=== PATIENT | male | born 1935 | race Caucasian/White ===

== ENCOUNTER → 2016-12-24 | Outpatient (CLI) | payer MEDICARE, OTHER ==
[~2016-12-24] VITALS: Ht 182.9 cm; Wt 108.9 kg
[~2016-12-24] MED LIST: ADENOSINE 90 MG/30 ML INJ IV ONE; ESOM40CA39 OR; FURO10SO OR; GABA-497 OR; GEMF600T3 OR; GLIM4TAB42 OR; HYDR10TA35 OR; METF-370 OR; METO-158 OR; POTASSIUM; RAMI10CA38 OR; SITA100T7 OR; [UNRECOGNIZED DRUG - CODE] SC
== END | disposition home or self-care (01) ==
LOC: Rad HDHVI 08:40
PROVIDERS: ATTEND Internal Medicine Cardiovascular Disease
DX: I10 Essential (primary) hypertension (principal); E11.9 Type 2 diabetes mellitus without complications; E78.00 Pure hypercholesterolemia, unspecified
CPT/HCPCS: 78452; 93005; 96374; 96375; A9500; J0153

== ENCOUNTER → 2016-12-30 | Outpatient (CLI) | payer MEDICARE, OTHER ==
[~2016-12-30] MED LIST changes: -ADENOSINE 90 MG/30 ML INJ IV ONE
== END | disposition home or self-care (01) ==
LOC: Rad HDHVI 13:19
PROVIDERS: ATTEND Internal Medicine Cardiovascular Disease
DX: R07.89 Other chest pain (principal); E11.65 Type 2 diabetes mellitus with hyperglycemia
CPT/HCPCS: 93306